=== PATIENT | female | born 1945 | race African-American/Black ===

== ENCOUNTER 2023-05-27 16:15 | Emergency (ER) | payer MEDICARE, MEDICAID ==
[~2023-05-27] VITALS: Ht 157.5 cm; Wt 73.0 kg
[2023-05-27 16:21] VITALS: O2SAT 98
[2023-05-27] MEDS ORDERED: CLONIDINE 0.2MG TABLET PO ONE (17:00)
[2023-05-27] MEDS: HYDROCODONE/ACETAMINOPHEN 7.5/325MG TABLET PO ONE (17:34)
[2023-05-27] MEDS: CLONIDINE 0.1MG TABLET PO NR (17:35)
[2023-05-27] MEDS: IBUPROFEN 600MG TABLET PO ONE (17:39)
[2023-05-27] MEDS ORDERED: ALPRAZOLAM 0.5 MG TABLET PO ONE (17:45)
[2023-05-27] MEDS: ALPRAZOLAM 0.25 MG TABLET PO NR (18:20)
[2023-05-27] MEDS ORDERED: AMLO5TAB88 MT (19:25)
[2023-05-27] MEDS ORDERED: HYDR-4001 MT (19:25)
[2023-05-27] MEDS ORDERED: DIAZ5TAB4 MT (19:26)
[2023-05-27 19:30] VITALS: BP 150/87; PULSE 99; RESP 14; TEMP 98.2
== END 2023-05-27 19:46 | disposition home or self-care (01) ==
LOC: ER 16:15
DX: T42.4X1A Poisoning by benzodiazepines, accidental (unintentional), initial encounter (principal); I16.0 Hypertensive urgency; I10 Essential (primary) hypertension; F11.13 Opioid abuse with withdrawal; F41.9 Anxiety disorder, unspecified; J44.9 Chronic obstructive pulmonary disease, unspecified; Y92.89 Other specified places as the place of occurrence of the external cause
CPT/HCPCS: 99291